=== PATIENT | male | born 1955 | race Caucasian/White ===

== ENCOUNTER 2019-02-07 11:16 | Emergency (ER) | payer BC, MEDICARE ==
[2019-02-07] MEDS ORDERED: PANTOPRAZOLE SODIUM 40 MG VIAL IV ONE (12:34)
[2019-02-07] MEDS ORDERED: ONDANSETRON HCL INJ/PF 4 MG/2 ML SDV IV ONE (12:34)
[2019-02-07] MEDS ORDERED: MORPHINE SULFATE 10 MG/ML INJ IV ONE ×2 (12:34→16:59)
--- NOTE | 2019-02-07 12:38 | ER Document Report ---
ED Medical Screen (RME) - General Chief Complaint: Abdominal Pain Stated Complaint: ABDOMINAL PAIN Time Seen by Provider: 02/07/19 12:30 Primary Care Provider: MADELIN JANE MD [Primary Care Provider] - Follow up as needed Mode of Arrival: Ambulatory Information source: Patient TRAVEL OUTSIDE OF THE [place] IN LAST 30 DAYS: No - HPI Patient complains to provider of: ABDO PAIN, BLOOD IN STOOL Notes: 02/07/19 12:36 Patient here with complaints of abdominal pain and GI bleed. The patient has a history of chronic pain and is on oxycodone. Is been out of his medication for over a week. Has been taking ibuprofen and drinking alcohol due to pain. Now complaining of some upper abdominal pain and having some black tarry stool. He was sent in by his primary care doctor due to blood in his stool. He was supposed to go over for some outpatient imaging, his pain got much worse so he came to the emergency department. Exam Nontoxic, no distress. Patient does appear uncomfortable hunched over holding his abdomen. No focal abdominal tenderness on exam. Lungs clear and equal throughout. Heart sounds normal. Plan CBC, CMP, lipase, coags, type and screen, saline lock, morphine, Zofran, Protonix, CT abdomen pelvis with IV contrast An initial examination was made on the patient as part of the triage process, and it was determined a more comprehensive evaluation was necessary. Initial labs were ordered and patient was transferred to another provider in the ED who assumed care and finished evaluation and plan. - Related Data Allergies/Adverse Reactions: No Known Allergies Allergy (Verified 02/07/19 11:18) Past Medical History - Social History Chew tobacco use (# tins/day): No Frequency of alcohol use: Social Drug Abuse: None - Past Medical History Cardiac Medical History: Reports: Hx Hypertension Denies: Hx Heart Attack Pulmonary Medical History: Denies: Hx Asthma, Hx Bronchitis, Hx COPD, Hx Pneumonia Neurological Medical History: Denies: Hx Cerebrovascular Accident, Hx Seizures Renal/ Medical History: Denies: Hx Peritoneal Dialysis Musculoskeltal Medical History: Reports Hx Arthritis Past Surgical History: Reports: Hx Abdominal Surgery - hernia repair - Immunizations Hx Diphtheria, Pertussis, Tetanus Vaccination: Yes Physical Exam - Vital signs Vitals: Temp Pulse Resp BP Pulse Ox 98.3 F 98 18 142/93 H 92 02/07/19 11:22 02/07/19 11:22 02/07/19 11:22 02/07/19 11:22 02/07/19 11:22 Course - Vital Signs Vital signs: Temp Pulse Resp BP Pulse Ox 98.3 F 98 18 142/93 H 92 02/07/19 11:22 02/07/19 11:22 02/07/19 11:22 02/07/19 11:22 02/07/19 11:22 Doctor's Discharge - Discharge Referrals: MADELIN JANE MD [Primary Care Provider] - Follow up as needed
[2019-02-07 13:14] LABS: ABSOLUTE BASOPHILS # (AUTO) 0.1 10^3/uL (0.0-0.2); ABSOLUTE MONOCYTES (AUTO) 0.8 10^3/uL (0.1-1.4); ABSOLUTE NEUT (AUTO) 11.5 10^3/uL (1.7-8.2); BASOPHILS % (AUTO) 0.5 % (0-2); EOSINOPHILS % (AUTO) 0.1 % (0-6); LYMPHOCYTES % (AUTO) 7.8 % (13-45); MEAN CORPUSCULAR HEMOGLOBIN 31.7 pg (27.0-33.4); MEAN CORPUSCULAR HGB CONC 33.3 g/dL (32.0-36.0); MEAN CORPUSCULAR VOLUME 95 fl (80-97); MONOCYTES % (AUTO) 5.7 % (3-13); PLATELET COUNT 315 10^3/uL (150-450); RED BLOOD COUNT 4.73 10^6/uL (4.35-5.55); RED CELL DISTRIBUTION WIDTH 14.4 % (11.5-14.0); SEGMENTED NEUTROPHILS % (AUTO) 85.9 % (42-78); TOTAL CELLS COUNTED % (AUTO) 100 %; WHITE BLOOD COUNT 13.4 10^3/uL (4.0-10.5)
[2019-02-07 13:19] LABS: INTERNATIONAL RATION (INR) 0.92; PROTHROMBIN TIME 12.8 SEC (11.4-15.4)
[2019-02-07 13:20] LABS: PARTIAL THROMBOPLASTIN TIME 29.2 SEC (23.5-35.8)
[2019-02-07 13:40] LABS: ALANINE AMINOTRANSFERASE 25 U/L (21-72); ALBUMIN 3.4 g/dL (3.5-5.0); ALKALINE PHOSPHATASE 70 U/L (38-126); ANION GAP 13 (5-19); ASPARTATE AMINO TRANSFERASE 33 U/L (17-59); BILIRUBIN,DIRECT 0.6 mg/dL (0.0-0.4); BILIRUBIN,TOTAL 0.6 mg/dL (0.2-1.3); BLOOD UREA NITROGEN 23 mg/dL (7-20); CALCIUM 9.8 mg/dL (8.4-10.2); CARBON DIOXIDE 33 mmol/L (22-30); CHLORIDE 83 mmol/L (98-107); GLUCOSE 101 mg/dL (75-110); LIPASE 60.3 U/L (23-300); SODIUM 129.2 mmol/L (137-145); TOTAL PROTEIN 6.4 g/dL (6.3-8.2)
[2019-02-07 13:42] LABS: POTASSIUM 2.5 mmol/L (3.6-5.0)
[2019-02-07] MEDS ORDERED: POTASSI CL 20 MEQ/50 ML RIDER 20 MEQ/50 ML RTUPB IV ONE ×3 (13:53→16:52)
[2019-02-07] MEDS ORDERED: POTASSIUM CHLORIDE 10 MEQ CAPSULE.ER PO ONE (13:53)
--- NOTE | 2019-02-07 14:35 | RADIOLOGY REPORT (SQ) ---
EXAM DESCRIPTION: CT ABD/PELVIS WITH IV ONLY COMPLETED DATE/TIME: 02/07/2019 2:16 pm REASON FOR STUDY: ABDO PAIN, GI BLEED COMPARISON: None. TECHNIQUE: CT scan of the abdomen and pelvis performed using helical scanning technique with dynamic intravenous contrast injection. No oral contrast. Images reviewed with lung, soft tissue, and bone windows. Reconstructed coronal and sagittal MPR images reviewed. Delayed images for evaluation of the urinary system also acquired. All images stored on PACS. All CT scanners at this facility use dose modulation, iterative reconstruction, and/or weight based d osing when appropriate to reduce radiation dose to as low as reasonably achievable (ALARA). [facility]: Dose Right [facility]: CareDose [facility]: Dose Right [facility]: Teradose 4D [facility]: [employer] CONTRAST TYPE AND DOSE: contrast/concentration: Isovue 350.00 mg/ml; Total Contrast Delivered: 99.0 ml; Total Saline Delivered: 64.3 ml RENAL FUNCTION: GFR > 60. RADIATION DOSE: CT Rad equipment meets quality standard of care and radiation dose reduction techniq ues were employed. CTDIvol: 12.9 - 16.7 mGy. DLP: 1650 mGy-cm.. LIMITATIONS: None. FINDINGS: LOWER CHEST: No significant findings. No nodules or infiltrates. LIVER: Normal size. No masses. No dilated ducts. SPLEEN: Normal size. No focal lesions. PANCREAS: No masses. No significant calcifications. No adjacent inflammation or peripancreatic fluid collections. Pancreatic duct not dilated. GALLBLADDER: Gallstones. No inflammatory changes to suggest cholecystitis. ADRENAL GLANDS: No significant masses or asymmetry. RIGHT KIDNEY AND URETER: No solid masses. Multiple nonobstructive calculi. No hydronephrosis or h ydroureter. LEFT KIDNEY AND URETER: No solid masses. There is a large obstructive calculus of the proximal left ureter measuring 1.8 cm with moderate left hydronephrosis and pelviectasis. There are multiple francie tional nonobstructive calculi of the left kidney. AORTA AND VESSELS: No aneurysm. No dissection. Renal arteries, SMA, celiac without stenosis. Severe mixed calcific atherosclerosis. RETROPERITONEUM: No retroperitoneal adenopathy, hemorrhage or masses. BOWEL AND PERITONEAL CAVITY: There is severe thickening of the pylorus and duodenum (series 601, imag e 30). Severe diverticulosis without evidence of acute diverticulitis. APPENDIX: Normal. PELVIS: No mass. No free fluid. Normal bladder. ABDOMINAL WALL: No masses. No hernias. BONES: No significant or acute findings. OTHER: No other significant finding. IMPRESSION: 1. There is severe thickening of the pylorus and duodenum, consistent with nonspecific i nfection or inflammation. Ulcerative disease of the pylorus or duodenum is a potential source of GI bleeding however there are no CT findings on this examination to localize source GI bleeding. 2. Severe sigmoid diverticulosis without evidence of acute diverticulitis. 3. There is a large obstructive calculus of the proximal left ureter measuring 1.8 cm with moderate left hydronephrosis and pelviectasis. Multiple additional bilateral nonobstructive renal calculi. TECHNICAL DOCUMENTATION: JOB ID: [id number] Quality ID # [id number]: Final reports with documentation of one or more dose reduction techniques (e.g., Au tomated exposure control, adjustment of the mA and/or kV according to patient size, use of iterative reconstruction technique) 2010 [employer]- All Rights Reserved Reading location - IP/workstation name: [email or web address]
--- NOTE | 2019-02-07 14:38 | ER Document Report ---
ED GI/ - General Mode of Arrival: Ambulatory Information source: Patient, Friend TRAVEL OUTSIDE OF THE [place] IN LAST 30 DAYS: No - HPI Patient complains to provider of: Abdominal pain Onset: Other - 2 to 3 weeks ago Timing/Duration: Persistent, Worse Quality of pain: Cramping, Sharp, Throbbing Severity at maximum: Severe Severity in ED: Severe Pain Level: 5 Location: Chest pain, Epigastric, Low back Sexual history: Inactive Associated symptoms: Blood in emesis, Blood in stool, Chest pain, Coffee ground emesis, Nausea, Vomiting Exacerbated by: Food Relieved by: Denies Similar symptoms previously: No Recently seen / treated by doctor: Yes <FRANCES SINGER - Last Filed: 02/08/19 01:28> <OSBALDO BRAVO - Last Filed: 02/08/19 02:20> <KERWIN SUAREZ - Last Filed: 02/08/19 10:45> - General Chief Complaint: Abdominal Pain Stated Complaint: ABDOMINAL PAIN Time Seen by Provider: 02/07/19 12:30 Primary Care Provider: MADELIN JANE MD [COMMUNITY BASED STAFF] - Follow up as needed Notes: Patient is a 63-year-old male comes emergency room sent by Dr. Martinez because of a new onset GI bleed. Patient is in pain managed for chronic back pain and is usually prescribed on a monthly basis 120 care support all 350 mg and oxycodone 20 mg tablets #90 a 30-day supply. He ran out according to him approximately last or Monday and since that time because of his severe pain and discomfort he has been taking minimum of 200 mg Advil 4 tablets 5-6 times a day and he states closer to 6 times a day so for grand total of 4800 mg in the day around the clock. He started with severe abdominal pain 2 days ago he is vomited up according to him coffee-ground type emesis and he has had footage type color stools. He is also been burping excessively. Patient states that his abdominal pain actually started prior to him running out of his pain medications and has increased at a substantial rate with the addition of the Ad christiano and he is also added alcohol into the mix. He states he drank heavily yesterday because of his his severe pain and added the ibuprofen onto that. Patient has a history of an ID he is an oral dependent diabetic he states he takes 5 medications for blood pressure but is unaware as to what they are but states he does not know if he takes a blood thinner. Patient also admits to smoking a minimum 2 packs of cigarettes a day. He does not take oxygen at home. States he last vomited this morning about 9 AM. (FRANCES SINGER) - Related Data Allergies/Adverse Reactions: No Known Allergies Allergy (Verified 02/07/19 11:18) Past Medical History - General Information source: Patient, Friend - Social History Smoking Status: Current Every Day Smoker Cigarette use (# per day): Yes - 2 packs a day Chew tobacco use (# tins/day): No Smoking Education Provided: Yes Frequency of alcohol use: Social Drug Abuse: None Lives with: Alone Family History: Reviewed & Not Pertinent Patient has suicidal ideation: No Patient has homicidal ideation: No - Past Medical History Cardiac Medical History: Reports: Hx Hypertension Denies: Hx Heart Attack Pulmonary Medical History: Denies: Hx Asthma, Hx Bronchitis, Hx COPD, Hx Pneumonia Neurological Medical History: Denies: Hx Cerebrovascular Accident, Hx Seizures Renal/ Medical History: Denies: Hx Peritoneal Dialysis Musculoskeletal Medical History: Reports Hx Arthritis Past Surgical History: Reports: Hx Abdominal Surgery - hernia repair - Immunizations Hx Diphtheria, Pertussis, Tetanus Vaccination: Yes <FRANCES SINGER - Last Filed: 02/08/19 01:28> Review of Systems - Review of Systems Constitutional: No symptoms reported EENT: No symptoms reported Cardiovascular: See HPI, Chest pain Respiratory: See HPI, Short of breath Gastrointestinal: See HPI, Abdomen distended, Abdominal pain, Nausea, Vomiting, Black stools, Rectal bleeding, Last bowel movement, Other - Coffee-ground emesis Genitourinary: No symptoms reported Male Genitourinary: No symptoms reported Musculoskeletal: No symptoms reported Skin: No symptoms reported Hematologic/Lymphatic: No symptoms reported Neurological/Psychological: No symptoms reported -: Yes All other systems reviewed and negative <FRANCES SINGER - Last Filed: 02/08/19 01:28> Physical Exam - Vital signs Interpretation: Hypertensive <FRANCES SINGER - Last Filed: 02/08/19 01:28> - Vital signs Vitals: Temp Pulse Resp BP Pulse Ox 98.3 F 98 18 142/93 H 92 02/07/19 11:22 02/07/19 11:22 02/07/19 11:22 02/07/19 11:22 02/07/19 11:22 - Notes Notes: PHYSICAL EXAMINATION: GENERAL: Patient is a well-nourished well-developed 63-year-old male who is in no apparent distress on physical exam today however patient appears somewhat uncomfortable. He has a hardened personality avoids questions and gives abstract answers. Talks around the answers. HEAD: Atraumatic, normocephalic. EYES: Pupils equal round and reactive to light, extraocular movements intact, sclera anicteric, conjunctiva are normal. ENT: Nares patent, oropharynx clear without exudates. Moist mucous membranes. NECK: Normal range of motion, supple without lymphadenopathy LUNGS: Auscultation patient's lungs show he has bilateral breath sounds breath sounds are decreased throughout he has a faint expiratory wheeze with no rhonchi or rales heard at this time. HEART: Regular rate and rhythm without murmurs ABDOMEN: Examination the abdomen shows she has a distended abdomen that sounds blunted to percussion moderate tympany in the upper quads supine position. Bowel sounds are present but fairly quiet. Diffuse tenderness noted. Moderate amount of midepigastric pain to palpation. Musculoskeletal: Normal range of motion, no pitting or edema. No cyanosis. NEUROLOGICAL: Normal speech, normal gait. Normal sensory, motor exams PSYCH: Flat a fact SKIN: Warm, Dry, normal turgor, no rashes or lesions noted. (FRANCES SINGER) Course - Laboratory Result Diagrams: 02/07/19 20:35 02/07/19 20:35 - Transfer of Care Care transferred to following provider: Anupam [facility] <FRANCES SINGER - Last Filed: 02/08/19 01:28> - Laboratory Result Diagrams: 02/08/19 01:20 02/08/19 01:20 <OSBALDO BRAVO - Last Filed: 02/08/19 02:20> - Laboratory Result Diagrams: 02/08/19 01:20 02/08/19 01:20 <KERWIN SUAREZ - Last Filed: 02/08/19 10:45> - Re-evaluation Re-evalutation: 02/07/19 14:43 As stated patient is a very difficult person to deal with. He avoids questions and answers are abstract and do not completely answer the question. He admits to only occasional alcohol and states that this binge that he is been on is only been secondary to run out of his pain medications and having to deal with the pain he is increased his alcohol intake substantially the past 3 days to include that with handfuls of ibuprofen. He has been taking 800 mg of ibuprofen 5-6 times a day. He does state that his abdominal pain started prior to this. Patient's friend states she is very difficult he does not drink on a more regular basis than he admits and states is only for medicinal purposes. Patient's guaiac was highly positive. Sitting there on physical examination patient is continuously burping but he has not vomited. He has been shown to have a 2.5 potassium orders for a 40 mg p.o. load I feel that we will go only IV currently with the first 20 mEq rider attached we will also then add a second 40 mEq rider IV as well. I started a Protonix drip. We will further evaluate betsy josé after CT and rest of labs are back. 02/08/19 01:20 Updating patient status. I attempted to contact [facility] and when talked to their intake person there only to be told that they were not accepting any new patients. They explained that they were only taken emergency patients at this time. I contacted [facility] was told basically the same thing. I readdress the issue with the patient and he informed me he would like to go to [facility]. I contacted [facility] and was pleasantly surprised to have the intake person there for me through the doctor Caleb was a hospitalist there at the time. I explained the entire story to her and she was very pleasant and accept the patient to [facility]. The caveat to that was their full right now but when the first bed became available patient would be accepted. She informed me that it would probably be 24 hours before this could happen. Upon hanging up the transfer person there informed me that if at any time we had a change in patient's medical status and he has taken a turn probable for the worst we are to contact them if he would need an ICU bed and they would take him the first open bed in ICU. From about 7 PM on patient had an altered mental status and I had Dr. Larry Marie come in during the event and we concluded that it was probably a withdrawal from alcohol. We gave the patient 4 of Ativan along with magnesium, thiamine and fluids and patient got somewhat better but still maintained a tachycardic rate. Around 11:00 patient had another episode of altered mental status and I readdress the issue with Dr. Banks and informed Barbara Bravo who is the PA on maintenance technician 3rd shift. Because of the hand and the patient off to her. It was suggested by Dr. Banks that I put in for a internal medicine consult with Dr. Anne which I did. willing to inform me that our [facility] does not have an acute alcohol withdrawal policy. However he informed me that he would come down and take a look at the patient and offer any internal medical assistance that he might have. So at this point I am going to be handed patient off to Barbara for further intervention. (FRANCES SINGER) 02/08/19 02:[address] Baig has seen the patient in the emergency department and placed orders. Nursing staff has been instructed to go through Dr. Baig for any orders needed. Patient continues to be in the emergency department awaiting transfer. (OSBALDO BRAVO) 02/08/19 10:43 Saw patient with transport nurse at bedside prior to transfer. Patient was initially obtunded and required vigorous sternal rub to arouse. Patient had been getting standing Valium to prevent DTs. Nurse was initially concerned and called by did not to consider upgrading patient to MICU. I briefly spoke with the MICU attending and then went and assessed the patient at the bedside. When I spoke with the patient he was awake and alert to self and place but not date. Patient was able to hold a conversation. Blood pressure was 148/100. SPO2 97% on 2 L nasal cannula. Not tachycardic. Vital signs were within normal limits. Transport nurse made decision to transfer patient by air. Patient transferred with [facility] without problems. (KERWIN SUAREZ) - Vital Signs Vital signs: Temp Pulse Resp BP Pulse Ox 97.2 F 98 26 H 123/80 93 02/08/19 09:43 02/07/19 11:22 02/08/19 09:21 02/08/19 09:21 02/08/19 09:21 - Laboratory Laboratory results interpreted by me: 05/11/2702/07/19 02/07/19 12:45 12:45 16:45 WBC 13.4 H RBC Hgb RDW 14.4 H Seg Neutrophils % 85.9 H Lymphocytes % 7.8 L Absolute Neutrophils 11.5 H Carbonic Acid ABG pH ABG pCO2 ABG pO2 ABG HCO3 ABG Total CO2 ABG O2 Saturation Sodium 129.2 L Potassium 2.5 L* Chloride 83 L Carbon Dioxide 33 H BUN 23 H Direct Bilirubin 0.6 H ALT Total Protein Albumin 3.4 L Urine Ketones 20 H Urine Blood LARGE H Ur Leukocyte Esterase TRACE H 02/07/19 02/07/19 02/08/19 20:35 20:35 01:20 WBC 10.8 H RBC 4.24 L 4.17 L Hgb 13.3 L RDW 14.7 H 14.6 H Seg Neutrophils % Lymphocytes % Absolute Neutrophils Carbonic Acid ABG pH ABG pCO2 ABG pO2 ABG HCO3 ABG Total CO2 ABG O2 Saturation Sodium 131.1 L Potassium 2.9 L* Chloride 88 L Carbon Dioxide 34 H BUN 23 H Direct Bilirubin ALT Total Protein Albumin Urine Ketones Urine Blood Ur Leukocyte Esterase 02/08/19 02/08/19 02/08/19 01:20 02:00 09:30 WBC RBC Hgb RDW Seg Neutrophils % Lymphocytes % Absolute Neutrophils Carbonic Acid 2.38 H 1.64 H ABG pH 7.27 L ABG pCO2 79.2 H* 54.4 H ABG pO2 132.9 H 104.6 H ABG HCO3 35.3 H 34.7 H ABG Total CO2 37.7 H 36.4 H ABG O2 Saturation 98.1 H Sodium 133.5 L Potassium 2.9 L* Chloride 92 L Carbon Dioxide 32 H BUN Direct Bilirubin 0.5 H ALT 17 L Total Protein 5.4 L Albumin 3.0 L Urine Ketones Urine Blood Ur Leukocyte Esterase Discharge <FRANCES SINGER - Last Filed: 02/08/19 01:28> <OSBALDO BRAVO - Last Filed: 02/08/19 02:20> <KERWIN SUAREZ - Last Filed: 02/08/19 10:45> - Discharge Clinical Impression: Upper GI hemorrhage, Ureterolithiasis Altered mental status Qualifiers: Altered mental status type: unspecified Qualified Code(s): R41.82 - Altered mental status, unspecified Alcohol withdrawal Qualifiers: Complication of substance-induced condition: with delirium Qualified Code(s): F10.231 - Alcohol dependence with withdrawal delirium Disposition: [facility] Referrals: MADELIN JANE MD [COMMUNITY BASED STAFF] - Follow up as needed
[2019-02-07] MEDS: PANTOPRAZOLE SODIUM 40 MG VIAL IV PRN (16:08)
[2019-02-07 17:12] LABS: APPEARANCE,URINE SLIGHTLY-CLOUDY; BILIRUBIN,URINE NEGATIVE (NEGATIVE); COLOR,URINE YELLOW; GLUCOSE, URINE NEGATIVE (NEGATIVE); KETONES,URINE 20 mg/dL (NEGATIVE); LEUKOCYTE ESTERASE,URINE TRACE (NEGATIVE); NITRITE,URINE NEGATIVE (NEGATIVE); PROTEIN,URINE NEGATIVE (NEGATIVE); UROBILINOGEN,URINE NEGATIVE mg/dL (<2.0)
[2019-02-07] MEDS ORDERED: LORAZEPAM INJ 2 MG/1 ML VIAL IV ONE ×2 (17:47→20:15)
[2019-02-07] MEDS ORDERED: THIAMINE HCL 100 MG, FOLIC ACID 1 MG in NORMAL SALINE 250 ML IV ONE (20:23)
[2019-02-07] MEDS ORDERED: NORMAL SALINE 1000 ML 1,000 ML IV ONE (20:27)
[2019-02-07 20:47] LABS: ABSOLUTE BASOPHILS # (AUTO) 0.1 10^3/uL (0.0-0.2); ABSOLUTE LYMPHOCYTES (AUTO) 1.5 10^3/uL (0.5-4.7); ABSOLUTE MONOCYTES (AUTO) 0.8 10^3/uL (0.1-1.4); ABSOLUTE NEUT (AUTO) 7.7 10^3/uL (1.7-8.2); BASOPHILS % (AUTO) 0.6 % (0-2); EOSINOPHILS % (AUTO) 0.3 % (0-6); HEMATOCRIT 40.6 % (37.9-51.0); HEMOGLOBIN 13.6 g/dL (13.5-17.0); LYMPHOCYTES % (AUTO) 14.5 % (13-45); MEAN CORPUSCULAR HEMOGLOBIN 32.1 pg (27.0-33.4); MEAN CORPUSCULAR HGB CONC 33.5 g/dL (32.0-36.0); MEAN CORPUSCULAR VOLUME 96 fl (80-97); MONOCYTES % (AUTO) 8.1 % (3-13); PLATELET COUNT 268 10^3/uL (150-450); RED BLOOD COUNT 4.24 10^6/uL (4.35-5.55); RED CELL DISTRIBUTION WIDTH 14.7 % (11.5-14.0); SEGMENTED NEUTROPHILS % (AUTO) 76.5 % (42-78); TOTAL CELLS COUNTED % (AUTO) 100 %; WHITE BLOOD COUNT 10.1 10^3/uL (4.0-10.5)
[2019-02-07] MEDS: MAGNESIUM SULFATE/D5W 1 GM/100 ML RTUPB IV SCH ×2 (20:57→22:21)
[2019-02-07 21:06] LABS: ANION GAP 9 (5-19); BLOOD UREA NITROGEN 23 mg/dL (7-20); CALCIUM 9.1 mg/dL (8.4-10.2); CARBON DIOXIDE 34 mmol/L (22-30); CHLORIDE 88 mmol/L (98-107); GLUCOSE 86 mg/dL (75-110); SODIUM 131.1 mmol/L (137-145)
[2019-02-07 21:11] LABS: POTASSIUM 2.9 mmol/L (3.6-5.0)
--- NOTE | 2019-02-07 23:15 | EKG REPORT ---
SEVERITY:- ABNORMAL ECG - SINUS TACHYCARDIA RIGHT AXIS DEVIATION INFERIOR INFARCT, AGE INDETERMINATE : Confirmed by: Ayden Bingham 07-Feb-2019 23:15:22
[2019-02-08] MEDS ORDERED: LORAZEPAM INJ 2 MG/1 ML VIAL IV ONE (00:03)
[2019-02-08] MEDS ORDERED: DIAZEPAM INJ 10 MG/2 ML DISP.SYRIN IV PRN (01:12)
[2019-02-08] MEDS ORDERED: HALOPERIDOL LACTATE INJ 5 MG/1 ML VIAL IV PRN (01:13)
[2019-02-08] MEDS: PANTOPRAZOLE SODIUM 40 MG VIAL IV PRN (01:30)
[2019-02-08 01:35] LABS: HEMATOCRIT 40.2 % (37.9-51.0); HEMOGLOBIN 13.3 g/dL (13.5-17.0); MEAN CORPUSCULAR HGB CONC 33.1 g/dL (32.0-36.0); MEAN CORPUSCULAR VOLUME 97 fl (80-97); PLATELET COUNT 274 10^3/uL (150-450); RED BLOOD COUNT 4.17 10^6/uL (4.35-5.55); RED CELL DISTRIBUTION WIDTH 14.6 % (11.5-14.0); WHITE BLOOD COUNT 10.8 10^3/uL (4.0-10.5)
--- NOTE | 2019-02-08 01:53 | PDOC CONSULTATION ---
Consultation Consult Date: 02/08/19 Attending physician:: FERNIE BANKS Consult reason:: Delirium History of Present Illness Admission Date/PCP: 02/08/2019 JAYLEN POMPA MD Patient complains of: Upper GI bleeding History of Present Illness: MAIA PATEL is a 63 year old male who is being seen in consultation at the request of Dr. Banks due to intermittent delirium. Patient initially presented to the emergency room due to upper GI bleeding caused by excessive use of nonsteroidal anti-inflammatories in the form of ibuprofen 4800 mg/day and concomitant use of large amounts of alcohol for pain control due to inappropriate utilization of his regular pain management medications. Staff reports that the patient has had several episodes where his mental status has appeared to be altered and that he does not appear to answer questions or provides appropriate answers and seems to be confused or otherwise inappropriate in both actions and verbalizations. At the time of my evaluation the patient is obtunded but can be aroused and is delirious upon arousal. He therefore can provide no helpful input into his condition. Past Medical History Past Medical History: Past medical history, past surgical history, social history, family medical history and medications and allergy history are significantly impaired by the patient's mental status with delirium. Information present is obtained by using all available records and reliable sources. Cardiac Medical History: Reports: Hyperlipidema, Hypertension Denies: Myocardial Infarction Pulmonary Medical History: Denies: Asthma, Bronchitis, Chronic Obstructive Pulmonary Disease (COPD), Pneumonia EENT Medical History: Denies: Eyes - Prescription glasses, Ears - Hearing aids Neurological Medical History: Denies: Hemorrhagic CVA, Ischemic CVA, Seizures Endocrine Medical History: Reports: Diabetes Mellitus Type 2 Denies: Diabetes Mellitus Type 1, Hyperthyroidism, Hypothyroidism Renal/ Medical History: Reports: Nephrolithiasis, Other - Benign prostatic hypertrophy Denies: Chronic Kidney Disease Malignancy Medical History: Reports: None GI Medical History: Denies: Cirrhosis, Hepatitis, Peptic Ulcer Disease Musculoskeltal Medical History: Reports: Arthritis, Other - Chronic pain syndrome Skin Medical History: Denies: Eczema, Psoriasis Psychiatric Medical History: Reports: Substance Abuse, Tobacco Dependency Denies: Alcohol Dependency Traumatic Medical History: Reports: None Hematology: Denies: Anemia, Bleeding Tendencies Infectious Medical History: Reports: None Past Surgical History Past Surgical History: Past medical history, past surgical history, social history, family medical hist ory and medications and allergy history are significantly impaired by the patient's mental status with delirium. Information present is obtained by using all available records and reliable sources. Past Surgical History: Reports: Other - Patient is unable to provide meaningful input at this time. Social History Information Source: Patient Lives with: Alone Smoking Status: Current Every Day Smoker Frequency of Alcohol Use: Heavy - Over the last few days he has been using large amounts of alcohol for pain control Hx Recreational Drug Use: No Drugs: None Hx Prescription Drug Abuse: Yes - Currently in pain management and used his current medication to excess Past Social History Note: Past medical history, past surgical history, social history, family medical history and medications and allergy history are significantly impaired by the patient's mental status with delirium. Information present is obtained by using all available records and reliable sources. - Advance Directive Resuscitation Status: Full Code Surrogate healthcare decision maker:: Anton Patel Family History Family History: Other - The patient is unable to provide meaningful family history at this time. Family History: Past medical history, past surgical history, social history, family medical history and medications and allergy history are significantly impaired by the patient's mental status with delirium. Information present is obtained by using all available records and reliable sources. Parental Family History Reviewed: No Children Family History Reviewed: No Sibling(s) Family History Reviewed.: No Medication/Allergy Home Medications: Aspirin 81 mg PO DAILY PRN 03/03/16 Carisoprodol 1 tab PO DAILY 03/03/16 Diltiazem HCl [Diltiazem ER] 180 mg PO BID 03/03/16 Diltiazem HCl [Diltiazem ER] 240 mg PO DAILY 03/03/16 Enalapril Maleate 20 mg PO BID 03/03/16 Hydrocodone Bit/Acetaminophen [Hydrocodon-Acetaminophn 10-325] 1 each PO TID 03/03/16 Ibuprofen [Advil] 200 mg PO ASDIR PRN 03/03/16 Metformin HCl 2 tab PO DAILY 03/03/16 Oxybutynin Chloride [Ditropan Xl] 15 mg PO DAILY 03/03/16 Pravastatin Sodium 20 mg PO DAILY 03/03/16 Tamsulosin HCl 0.4 mg PO BID 03/03/16 Allergies/Adverse Reactions: No Known Allergies Allergy (Verified 02/07/19 11:18) Review of Systems ROS unobtainable: Due to mental status - Severe delirium Physical Exam Vital Signs: Temp Pulse Resp BP Pulse Ox 98.8 F 98 22 H 138/97 H 98 02/07/19 23:42 02/07/19 11:22 02/07/19 23:42 02/07/19 23:42 02/07/19 23:00 Intake & Output 02/06/19 02/07/19 02/08/19 23:59 23:59 23:59 Intake Total 1150 Output Total 700 Balance 450 Weight 87.3 kg General appearance: PRESENT: no acute distress, other - Sleeping and somewhat obtunded, though arousable, unable to remain awake for any length of time. Head exam: PRESENT: atraumatic, normocephalic Eye exam: PRESENT: EOMI. ABSENT: conjunctival injection, nystagmus, scleral icterus Ear exam: PRESENT: normal external ear exam. ABSENT: bleeding, drainage Mouth exam: PRESENT: dry mucosa, neck supple Neck exam: ABSENT: JVD, thyromegaly, tracheal deviation Respiratory exam: PRESENT: decreased breath sounds - Slightly decreased breath s ounds throughout all montez consistent with mild to moderate COPD, prolonged expiratory phas - Minimally prolonged expiratory phase noted throughout all montez, symmetrical, unlabored, wheezes - Minimal expiratory wheezes noted throughout all montez Cardiovascular exam: PRESENT: RRR. ABSENT: clicks, gallop, rubs Pulses: PRESENT: normal radial pulses, normal dorsalis pedis pul Vascular exam: PRESENT: normal capillary refill. ABSENT: pallor GI/Abdominal exam: PRESENT: normal bowel sounds, soft, tenderness - Patient appears to be uncomfortable with palpation in the left flank and percussion over the left CVA region Rectal exam: PRESENT: deferred Extremities exam: ABSENT: joint swelling, pedal edema Musculoskeletal exam: ABSENT: deformity, dislocation Neurological exam: PRESENT: altered - Chemically obtunded, CN II-XII grossly intact. ABSENT: motor sensory deficit Psychiatric exam: PRESENT: flat affect, other - Chemically obtunded, delirium noted when aroused Skin exam: PRESENT: dry, intact, warm. ABSENT: jaundice, rash, urticaria Results Laboratory Results: 02/07/19 20:35 02/07/19 20:35 02/07/19 02/07/19 02/07/19 12:45 12:45 12:45 WBC 13.4 H RBC 4.73 Hgb 15.0 Hct 45.0 MCV 95 MCH 31.7 MCHC 33.3 RDW 14.4 H Plt Count 315 Seg Neutrophils % 85.9 H Lymphocytes % 7.8 L Monocytes % 5.7 Eosinophils % 0.1 Basophils % 0.5 Absolute Neutrophils 11.5 H Absolute Lymphocytes 1.0 Absolute Monocytes 0.8 Absolute Eosinophils 0.0 Absolute Basophils 0.1 Sodium 129.2 L Potassium 2.5 L* Chloride 83 L Carbon Dioxide 33 H Anion Gap 13 BUN 23 H Creatinine 0.86 Est GFR ( Amer) > 60 Est GFR (Non-Af Amer) > 60 Glucose 101 Calcium 9.8 Magnesium Total Bilirubin 0.6 AST 33 ALT 25 Alkaline Phosphatase 70 Total Protein 6.4 Albumin 3.4 L Lipase 60.3 Urine Color Urine Appearance Urine pH Ur Specific Adrian Urine Protein Urine Glucose (UA) Urine Ketones Urine Blood Urine Nitrite Ur Leukocyte Esterase Urine WBC (Auto) Urine RBC (Auto) Blood Type Cancelled Antibody Screen Cancelled 02/07/19 02/07/19 02/07/19 14:45 14:45 16:45 WBC RBC Hgb Hct MCV MCH MCHC RDW Plt Count Seg Neutrophils % Lymphocytes % Monocytes % Eosinophils % Basophils % Absolute Neutrophils Absolute Lymphocytes Absolute Monocytes Absolute Eosinophils Absolute Basophils Sodium Potassium Chloride Carbon Dioxide Anion Gap BUN Creatinine Est GFR ( Amer) Est GFR (Non-Af Amer) Glucose Calcium Magnesium 1.6 Total Bilirubin AST ALT Alkaline Phosphatase Total Protein Albumin Lipase Urine Color YELLOW Urine Appearance SLIGHTLY-CLOUDY Urine pH 6.0 Ur Specific Adrian 1.030 Urine Protein NEGATIVE Urine Glucose (UA) NEGATIVE Urine Ketones 20 H Urine Blood LARGE H Urine Nitrite NEGATIVE Ur Leukocyte Esterase TRACE H Urine WBC (Auto) 23 Urine RBC (Auto) >182 Blood Type O NEGATIVE Antibody Screen NEGATIVE 02/07/19 02/07/19 20:35 20:35 WBC 10.1 RBC 4.24 L Hgb 13.6 Hct 40.6 MCV 96 MCH 32.1 MCHC 33.5 RDW 14.7 H Plt Count 268 Seg Neutrophils % 76.5 Lymphocytes % 14.5 Monocytes % 8.1 Eosinophils % 0.3 Basophils % 0.6 Absolute Neutrophils 7.7 Absolute Lymphocytes 1.5 Absolute Monocytes 0.8 Absolute Eosinophils 0.0 Absolute Basophils 0.1 Sodium 131.1 L Potassium 2.9 L* Chloride 88 L Carbon Dioxide 34 H Anion Gap 9 BUN 23 H Creatinine 0.86 Est GFR ( Amer) > 60 Est GFR (Non-Af Amer) > 60 Glucose 86 Calcium 9.1 Magnesium Total Bilirubin AST ALT Alkaline Phosphatase Total Protein Albumin Lipase Urine Color Urine Appearance Urine pH Ur Specific Adrian Urine Protein Urine Glucose (UA) Urine Ketones Urine Blood Urine Nitrite Ur Leukocyte Esterase Urine WBC (Auto) Urine RBC (Auto) Blood Type Antibody Screen Impressions: Abdomen/Pelvis CT 02/07/19 12:34 IMPRESSION: 1. There is severe thickening of the pylorus and duodenum, consistent with nonspecific infection or inflammation. Ulcerative disease of the pylorus or duodenum is a potential source of GI bleeding however there are no CT findings on this examination to localize source GI bleeding. 2. Severe sigmoid diverticulosis without evidence of acute diverticulitis. 3. There is a large obstructive calculus of the proximal left ureter measuring 1.8 cm with moderate left hydronephrosis and pelviectasis. Multiple additional bilateral nonobstructive renal calculi. Assessment and Plan - Diagnosis (1) Acute delirium Is this a current diagnosis for this admission?: Yes Plan: Though this patient is most likely experiencing delirium secondary to combined narcotic/opioid withdrawal and acute alcohol withdrawal, additional relevant possible causes of delirium should be explored including hypoxia, anemia and metabolic conditions. Laboratory evaluation will be ordered to this end including a repeat CBC, urine drug screen, arterial blood gases and a repeat comprehensive metabolic profile. (2) Alcohol withdrawal Qualifiers: Complication of substance-induced condition: with delirium Qualified Code(s): F10.231 - Alcohol dependence with withdrawal delirium Is this a current diagnosis for this admission?: Yes Plan: Management of the patient's delirium due to acute alcohol/opiate withdrawal will be provided using diazepam as the primary agent with an initial dose of 10 mg IV x1 followed by oral Valium 5 mg p.o. every 2 hours. Additional Valium for severe withdrawal symptoms including severe tremors, profound agitation/delirium, severe hallucinations and seizure activity will include Valium 10 mg IV every hour as needed. Nursing staff will observe the patient closely for excessive somnolence and will hold/delay doses as needed. In the event of severe agitation patient should receive Haldol 5 mg IV every hour as needed. If patient is unable/unwilling to take oral medications IV Valium can be substituted for oral Valium at the same dosage and interval. (3) Ureterolithiasis Is this a current diagnosis for this admission?: Yes Plan: Patient will be transferred for management of his ureterolithiasis. In the antrum pain control will be managed by the emergency room staff. (4) Upper GI hemorrhage Is this a current diagnosis for this admission?: Yes Plan: Patient will be transferred for further management. A repeat CBC will be obtained to assure that a significant drop in hemoglobin has not contributed to the patient's delirium. (5) HTN (hypertension) Qualifiers: Hypertension type: essential hypertension Qualified Code(s): I10 - Essential (primary) hypertension Is this a current diagnosis for this admission?: Yes Plan: Recommend continued use of the patient's usual antihypertensive medications as appropriate given his vital signs. Assuming he is able to take oral medications. (6) HLD (hyperlipidemia) Qualifiers: Hyperlipidemia type: unspecified Qualified Code(s): E78.5 - Hyperlipidemia, unspecified Is this a current diagnosis for this admission?: Yes Plan: Recommend continued use of the patient's Pravachol as available per hospital formulary. (7) Chronic pain syndrome Is this a current diagnosis for this admission?: Yes Plan: Acute pain management will be taking care of by the emergency room staff. (8) Benign prostatic hyperplasia with lower urinary tract symptoms Qualifiers: Lower urinary tract symptom detail: unspecified Qualified Code(s): N40.1 - Benign prostatic hyperplasia with lower urinary tract symptoms Is this a current diagnosis for this admission?: Yes Plan: Recommend continued use of the patient's tamsulosin as long as he is able to take oral medications. - Time Time Spent with patient: 15-24 minutes Smoking Cessation Education: 3 to 10 minutes Medications reviewed and adjusted accordingly: Yes Anticipated discharge: [facility]
[2019-02-08 02:12] LABS: ALANINE AMINOTRANSFERASE 17 U/L (21-72); ALKALINE PHOSPHATASE 53 U/L (38-126); ANION GAP 10 (5-19); ASPARTATE AMINO TRANSFERASE 23 U/L (17-59); BILIRUBIN,DIRECT 0.5 mg/dL (0.0-0.4); BILIRUBIN,TOTAL 0.6 mg/dL (0.2-1.3); BLOOD UREA NITROGEN 20 mg/dL (7-20); CALCIUM 8.6 mg/dL (8.4-10.2); CARBON DIOXIDE 32 mmol/L (22-30); CHLORIDE 92 mmol/L (98-107); GLUCOSE 90 mg/dL (75-110); SODIUM 133.5 mmol/L (137-145); TOTAL PROTEIN 5.4 g/dL (6.3-8.2)
[2019-02-08 02:16] LABS: POTASSIUM 2.9 mmol/L (3.6-5.0)
[2019-02-08 02:21] LABS: ARTERIAL BLOOD BASE EXCESS 5.4 mmol/L; ARTERIAL BLOOD H2CO3 2.38 mmol/L (1.05-1.35); ARTERIAL BLOOD HCO3 35.3 mmol/L (20-24); ARTERIAL BLOOD O2 SATURATION 98.1 % (94-98); ARTERIAL BLOOD PH 7.27 (7.35-7.45); ARTERIAL BLOOD PO2 132.9 mmHg (80-100); ARTERIAL BLOOD TOTAL CO2 37.7 mmol/L (23-27)
[2019-02-08 02:27] LABS: ARTERIAL BLOOD FIO2 5L
[2019-02-08] MEDS ORDERED: POTASSI CL 20 MEQ/D5-1/2NS 1L 1,000 ML IV PRN (02:27)
[2019-02-08 02:28] LABS: ARTERIAL BLOOD PCO2 79.2 mmHg (35-45)
[2019-02-08] MEDS ORDERED: HYDRALAZINE HCL INJ/PF 20 MG/1 ML SDV IV PRN (02:29)
[2019-02-08] MEDS ORDERED: ACETAMINOPHEN 325 MG TABLET PO PRN (02:29)
[2019-02-08] MEDS ORDERED: MORPHINE SULFATE 10 MG/ML INJ IV PRN ×4 (02:29→02:39)
[2019-02-08] MEDS ORDERED: NICOTINE 21 MG/24 HR PATCH.TD24 TD PRN (02:29)
[2019-02-08] MEDS ORDERED: ONDANSETRON HCL INJ/PF 4 MG/2 ML SDV IV PRN (02:31)
[2019-02-08] MEDS ORDERED: LEVALBUTEROL HCL NEB 0.63 MG/3 ML AMPUL NEB PRN (02:34)
[2019-02-08 02:38] LABS: URINE AMPHETAMINES SCREEN NEGATIVE; URINE BARBITURATES SCREEN NEGATIVE; URINE BENZODIAZEPINES SCREEN NEGATIVE; URINE COCAINE SCREEN NEGATIVE; URINE MARIJUANA (THC) SCREEN NEGATIVE; URINE METHADONE SCREEN NEGATIVE; URINE PHENCYCLIDINE SCREEN NEGATIVE
[2019-02-08] MEDS: DIAZEPAM 5 MG TABLET PO SCH ×4 (02:46→09:07)
[2019-02-08] MEDS: POTASSI CL 20 MEQ/50 ML RIDER 20 MEQ/50 ML RTUPB IV SCH ×2 (02:49→05:03)
[2019-02-08] MEDS ORDERED: IPRATROPIUM BROMIDE 0.02% NEB 0.5 MG/2.5 ML AMPUL NEB SCH (08:00)
[2019-02-08] MEDS ORDERED: BUDESONIDE NEB 0.5 MG/2 ML AMPUL NEB SCH (08:00)
[2019-02-08] MEDS ORDERED: LEVALBUTEROL HCL NEB 1.25 MG/3 ML AMPUL NEB SCH (08:00)
[2019-02-08] MEDS ORDERED: POTASSIUM CHLORIDE 10 MEQ CAPSULE.ER PO ONE (09:00)
[2019-02-08] MEDS ORDERED: MAGNESIUM OXIDE 400 MG TABLET PO ONE (09:00)
[2019-02-08 09:25] VITALS: BP 123/80
--- NOTE | 2019-02-08 09:41 | RADIOLOGY REPORT (SQ) ---
EXAM DESCRIPTION: CHEST SINGLE VIEW COMPLETED DATE/TIME: 02/08/2019 9:27 am REASON FOR STUDY: decreased SpO2 COMPARISON: None. NUMBER OF VIEWS: One view. TECHNIQUE: Single frontal radiographic view of the chest acquired. LIMITATIONS: None. FINDINGS: LUNGS AND PLEURA: There is minimal right basilar atelectasis. No consolidation, pleural e ffusions or pneumothorax. MEDIASTINUM AND HILAR STRUCTURES: No masses. Contour normal. HEART AND VASCULAR STRUCTURES: Heart normal in size. Normal vasculature. BONES: No acute findings. HARDWARE: None in the chest. OTHER: No other significant finding. IMPRESSION: Minimal right basilar atelectasis. TECHNICAL DOCUMENTATION: JOB ID: [id number] [employer]- All Rights Reserved Reading location - IP/workstation name: [email or web address]
[2019-02-08 09:46] LABS: ARTERIAL BLOOD BASE EXCESS 8.6 mmol/L; ARTERIAL BLOOD H2CO3 1.64 mmol/L (1.05-1.35); ARTERIAL BLOOD HCO3 34.7 mmol/L (20-24); ARTERIAL BLOOD O2 SATURATION 97.8 % (94-98); ARTERIAL BLOOD PCO2 54.4 mmHg (35-45); ARTERIAL BLOOD PH 7.42 (7.35-7.45); ARTERIAL BLOOD PO2 104.6 mmHg (80-100); ARTERIAL BLOOD TOTAL CO2 36.4 mmol/L (23-27)
[2019-02-08 09:49] LABS: ARTERIAL BLOOD FIO2 15L
[2019-02-08] MEDS ORDERED: OXYBUTYNIN CHLORIDE 15 MG PO SCH (10:00)
[2019-02-08] MEDS ORDERED: ASPIRIN 81 MG TABLET, CHEWABLE PO SCH (10:00)
[2019-02-08] MEDS ORDERED: (PENDING PHARMACY ID) (Pravastatin Sodium [Pravastatin Sodium] 20 MG) PO SCH (10:00)
[2019-02-08] MEDS ORDERED: TAMSULOSIN HCL 0.4 MG CAP.SR.24H PO SCH (10:00)
[2019-02-08] MEDS ORDERED: (PENDING PHARMACY ID) (Enalapril Maleate [Enalapril Maleate] 20 MG) PO SCH (10:00)
[2019-02-08] MEDS ORDERED: MVI, ADULT NO.1 WITH VIT K INJ 10 ML VIAL IV SCH (10:00)
[2019-02-08] MEDS ORDERED: (PENDING PHARMACY ID) (Diltiazem Hcl [Diltiazem 24hr Er] 180 MG) PO SCH (10:00)
[2019-02-08] MEDS ORDERED: DILTIAZEM HCL 240 MG CAPSULE.CR PO SCH (10:00)
[2019-02-08] MEDS ORDERED: PANTOPRAZOLE SODIUM 40 MG VIAL IV SCH (10:00)
== END 2019-02-08 09:43 | disposition short-term general hospital (02) ==
LOC: ER 11:16
DX: K92.2 Gastrointestinal hemorrhage, unspecified (principal); F10.231 Alcohol dependence with withdrawal delirium; N13.2 Hydronephrosis with renal and ureteral calculous obstruction; K92.1 Melena; K92.0 Hematemesis; R07.9 Chest pain, unspecified; R10.13 Epigastric pain; R14.0 Abdominal distension (gaseous); R14.2 Eructation; R06.2 Wheezing; R10.817 Generalized abdominal tenderness; M54.5 Low back pain; G89.4 Chronic pain syndrome; F17.210 Nicotine dependence, cigarettes, uncomplicated; I10 Essential (primary) hypertension; E11.9 Type 2 diabetes mellitus without complications; Z79.899 Other long term (current) drug therapy; Z79.82 Long term (current) use of aspirin; Z79.84 Long term (current) use of oral hypoglycemic drugs
CPT/HCPCS: 93005; 96376; 99285; 96375; 96365; 96366; 96367; 96368; 86900; 86901; 36415; 86850; 82962; 80307 ×2; 82803; 83690; 83735; 85025; 85027; 85610; 85730; 80048; 80053; 81001; 71045; 74177; 93010; J3360; A9270; J3490 ×2; J2270; J2060 ×2; J3475; J3480 ×3; C9113 ×2; J3411; J2405 ×2; J7030; J7050; S0164

== ENCOUNTER 2019-04-06 19:30 | Emergency (ER) | payer MEDICARE ==
[2019-04-06] MEDS ORDERED: ASPIRIN 81 MG TABLET, CHEWABLE PO ONE (19:54)
[2019-04-06] MEDS ORDERED: NORMAL SALINE 1000 ML 1,000 ML IV ONE (19:58)
--- NOTE | 2019-04-06 20:01 | ER Document Report ---
ED General - General Chief Complaint: Chest Pain Stated Complaint: CHEST PAIN Time Seen by Provider: 04/06/19 19:50 Primary Care Provider: JAYLEN POMPA MD [Primary Care Provider] - Follow up as needed Notes: Patient is a 63-year-old male with a past medical history of tobacco abuse, alcohol abuse, states that he was hospitalized in mid February for a large volume upper GI bleed stating "I almost bled to ", was transferred to [facility] for management of this large volume upper GI bleed hence states that he did require blood transfusion. Review of medical records from here at [facility] does reveal that the source was likely secondary to excessive use of NSAIDs as well as alcohol abuse. The patient relays a history of 3 days of chest pain radiating to the bilateral upper extremities as well as into the back. States the pain is a constant, throbbing, severe pain. He states that it is worsened by eating. He notes that it also makes him very nauseous to eat and often prompts him to vomit. He denies any known history of coronary artery disease. States the pain was so severe last night he could not sleep and as it progressively worsened today he decided to come to the hospital for further assessment. He denies associated shortness of breath but does note some diaphoresis and vomiting. TRAVEL OUTSIDE OF THE [place] IN LAST 30 DAYS: No - Related Data Allergies/Adverse Reactions: No Known Allergies Allergy (Verified 04/06/19 19:37) Past Medical History - General Information source: Patient - Social History Smoking Status: Current Every Day Smoker Frequency of alcohol use: Heavy Drug Abuse: None Lives with: Alone Family History: Reviewed & Not Pertinent, Other - The patient is unable to provide meaningful family history at this time. - Past Medical History Cardiac Medical History: Reports: Hx Hypercholesterolemia, Hx Hypertension Denies: Hx Heart Attack Pulmonary Medical History: Reports: Hx COPD Denies: Hx Asthma, Hx Bronchitis, Hx Pneumonia Neurological Medical History: Denies: Hx Cerebrovascular Accident, Hx Seizures Endocrine Medical History: Reports: Hx Diabetes Mellitus Type 2. Denies: Hx Diabetes Mellitus Type 1, Hx Hyperthyroidism, Hx Hypothyroidism Renal/ Medical History: Denies: Hx Peritoneal Dialysis GI Medical History: Denies: Hx Cirrhosis, Hx Hepatitis Musculoskeletal Medical History: Reports Hx Arthritis Skin Medical History: Denies Hx Eczema, Denies Hx Psoriasis Infectious Medical History: Denies: Hx Hepatitis Past Surgical History: Reports: Hx Abdominal Surgery - hernia repair, Other - Patient is unable to provide meaningful input at this time. - Immunizations Hx Diphtheria, Pertussis, Tetanus Vaccination: Yes Review of Systems - Review of Systems Notes: Constitutional: Negative for fever. HENT: Negative for sore throat. Eyes: Negative for visual changes. Cardiovascular: Positive for chest pain. Respiratory: Negative for shortness of breath. Gastrointestinal: Negative for abdominal pain, positive for nausea and vomiting Genitourinary: Negative for dysuria. Musculoskeletal: positive for pain to the bilateral upper extremities. Skin: Negative for rash. Neurological: Negative for headaches, weakness or numbness. 10 point ROS negative except as marked above and in HPI. Physical Exam - Vital signs Vitals: Resp 22 H 04/06/19 19:47 Interpretation: Normal Notes: PHYSICAL EXAMINATION: GENERAL: Ill in appearance, somewhat pale but in no acute distress HEAD: Atraumatic, normocephalic. EYES: Pupils equal round and reactive to light, extraocular movements intact, sclera anicteric, conjunctiva are normal. ENT: nares patent, oropharynx clear without exudates. Moderately dry mucous membranes. NECK: Normal range of motion, supple without lymphadenopathy LUNGS: Mild tachypnea, diffuse wheezes in all lung montez HEART: Regular tachycardia without murmurs ABDOMEN: Soft, nontender, normoactive bowel sounds. No guarding, no rebound. No masses appreciated. EXTREMITIES: Normal range of motion, no pitting or edema. No cyanosis. NEUROLOGICAL: No focal neurological deficits. Moves all extremities spontaneously and on command. PSYCH: Normal mood, normal affect. SKIN: Somewhat cool to touch, diffuse pallor Course - Re-evaluation Re-evalutation: 04/06/19 20:02 Patient presents with what appears to be an acute STEMI. EKG was brought to me from triage, I immediately called an acute STEMI based on elevations of greater than 1 mm in leads V3, V4, V5. Patient was immediately brought back to a trauma resuscitation room and a code STEMI was called. Immediately a comp getting factor was identified in the patient's history which is that he had a large volume upper GI bleed less than 6 weeks ago certainly concerning for proceeding with thrombolytic therapy. 04/06/19 20:12 I spoke with the credit and collection manager at [facility] who has accepted the patient. He has reviewed EKG agrees that this is a STEMI pattern. Agrees on avoiding TNKase, states that we can start heparin as long as the patient's hemoglobin is above the transfusion threshold. Labs are pending. The patient did become hypotensive after administration of nitroglycerin, 2 tabs sublingual over 10 minutes. Pressures did go as low as the upper 70s systolic. No further nitroglycerin will be administered. Patient was started on IV fluids, blood pressure responded well and is currently at 105 on 83. Patient is noted to have diffuse wheezing and is mildly hypoxic to 88%. He has been placed on supplemental nasal cannula and has been given a nebulizer treatment. Patient remains in critical condition, will continue to reassess at regular intervals. 04/06/19 20:25 Hemoglobin is well above transfusion threshold. Case discussed again with accepting physician Dr. Lucio and we will proceed now with heparin infusion. 04/06/19 20:55 Troponin is markedly elevated as is BMP. Air care has arrived and patient will be medevac. I have contacted [facility] and informed them of lab derangements 04/06/19 20:56 - Vital Signs Vital signs: Temp Pulse Resp BP Pulse Ox 97.8 F 20 116/93 H 95 04/06/19 20:22 04/06/19 20:43 04/06/19 20:43 04/06/19 20:43 - Laboratory Result Diagrams: 04/06/19 19:55 04/06/19 19:55 Laboratory results interpreted by me: 04/06/19 04/06/19 04/06/19 19:55 19:55 19:55 WBC 13.5 H RBC 4.32 L Hgb 10.9 L Hct 34.8 L MCH 25.2 L MCHC 31.3 L RDW 19.7 H Seg Neutrophils % 83.3 H Lymphocytes % 6.9 L Absolute Neutrophils 11.2 H Sodium 135.1 L Chloride 96 L Carbon Dioxide 31 H BUN 23 H Direct Bilirubin 0.5 H AST 87 H NT-Pro-B Natriuret Pep 43678 H - Diagnostic Test Radiology reviewed: Image reviewed, Reports reviewed Radiology results interpreted by me: 04/06/19 20:56 Chest x-ray: No acute infiltrate, unchanged from previous. - EKG Interpretation by Me Additional EKG results interpreted by me: 04/06/19 20:[address] elevation [place] with ST changes in V3, V4, V5. Sinus tachycardia, rate 122. Critical Care Note - Critical Care Note Total time excluding time spent on procedures (mins): 35 Comments: Critical care time spent obtaining history from patient or surrogate, discussions with consultants, development of treatment plan with patient or surrogate, evaluation of patient's response to treatment, examination of patient, ordering and performing treatments and interventions, ordering and revi ew of laboratory studies, re-evaluation of patient's condition, ordering and review of radiographic studies and review of old charts Discharge - Discharge Clinical Impression: Tobacco use STEMI (ST elevation myocardial infarction) Qualifiers: Involved coronary artery: unspecified coronary artery Qualified Code(s): I21.3 - ST elevation (STEMI) myocardial infarction of unspecified site Nausea and vomiting Qualifiers: Vomiting type: unspecified Vomiting Intractability: non-intractable Qualified Code(s): R11.2 - Nausea with vomiting, unspecified Condition: Critical Disposition: [facility] Referrals: JAYLEN POMPA MD [Primary Care Provider] - Follow up as needed
[2019-04-06] MEDS ORDERED: EPINEPHRINE INJ 1 MG/10 ML DISP.SYRIN ONE (20:05)
[2019-04-06] MEDS ORDERED: IPRATROPIUM/ALBUTEROL 0.5-2.5 MG/3 ML AMPUL NEB ONE (20:05)
[2019-04-06 20:12] LABS: ABSOLUTE LYMPHOCYTES (AUTO) 0.9 10^3/uL (0.5-4.7); ABSOLUTE MONOCYTES (AUTO) 1.3 10^3/uL (0.1-1.4); ABSOLUTE NEUT (AUTO) 11.2 10^3/uL (1.7-8.2); BASOPHILS % (AUTO) 0.2 % (0-2); EOSINOPHILS % (AUTO) 0.3 % (0-6); HEMATOCRIT 34.8 % (37.9-51.0); HEMOGLOBIN 10.9 g/dL (13.5-17.0); LYMPHOCYTES % (AUTO) 6.9 % (13-45); MEAN CORPUSCULAR HEMOGLOBIN 25.2 pg (27.0-33.4); MEAN CORPUSCULAR HGB CONC 31.3 g/dL (32.0-36.0); MEAN CORPUSCULAR VOLUME 81 fl (80-97); MONOCYTES % (AUTO) 9.3 % (3-13); PLATELET COUNT 278 10^3/uL (150-450); RED BLOOD COUNT 4.32 10^6/uL (4.35-5.55); RED CELL DISTRIBUTION WIDTH 19.7 % (11.5-14.0); SEGMENTED NEUTROPHILS % (AUTO) 83.3 % (42-78); TOTAL CELLS COUNTED % (AUTO) 100 %; WHITE BLOOD COUNT 13.5 10^3/uL (4.0-10.5)
[2019-04-06] MEDS ORDERED: HEPARIN SODIUM,PORCINE/D5W 25,000 UNIT/250 ML RTUINJ IV PRN (20:21)
[2019-04-06] MEDS ORDERED: HEPARIN SOD (PORCINE) 1,000 UNIT/ML 10 ML VIAL IV ONE (20:21)
[2019-04-06] MEDS ORDERED: HEPARIN SODIUM,PORCINE/D5W 25,000 UNIT/250 ML RTUINJ IV ONE (20:28)
[2019-04-06] MEDS ORDERED: HEPARIN SOD (PORCINE) 1,000 UNIT/ML 10 ML VIAL ONE (20:29)
--- NOTE | 2019-04-06 20:31 | RADIOLOGY REPORT (SQ) ---
EXAM DESCRIPTION: XR CHEST 1 VIEW COMPLETED DATE/TME: 04/06/2019 19:55 CLINICAL HISTORY: 63 years Male cp COMPARISON: 02/08/2019 FINDINGS: The cardiomediastinal silhouette appears unremarkable. No consolidating infiltrates or pleural effusions. No pneumothorax. Do fibular pad over the central chest. Overlying monitoring devices are present. IMPRESSION: No acute abnormality is identified.
[2019-04-06 20:34] LABS: ALANINE AMINOTRANSFERASE 35 U/L (21-72); ALBUMIN 3.6 g/dL (3.5-5.0); ALKALINE PHOSPHATASE 86 U/L (38-126); ANION GAP 8 (5-19); ASPARTATE AMINO TRANSFERASE 87 U/L (17-59); BILIRUBIN,DIRECT 0.5 mg/dL (0.0-0.4); BILIRUBIN,TOTAL 0.7 mg/dL (0.2-1.3); BLOOD UREA NITROGEN 23 mg/dL (7-20); CALCIUM 9.2 mg/dL (8.4-10.2); CARBON DIOXIDE 31 mmol/L (22-30); CHLORIDE 96 mmol/L (98-107); GLUCOSE 104 mg/dL (75-110); POTASSIUM 4.3 mmol/L (3.6-5.0); SODIUM 135.1 mmol/L (137-145); TOTAL PROTEIN 6.7 g/dL (6.3-8.2)
[2019-04-06 20:35] LABS: ALCOHOL < 10 mg/dL (NONE DETECTED)
[2019-04-06 20:38] LABS: INTERNATIONAL RATION (INR) 1.06; PROTHROMBIN TIME 13.8 SEC (11.4-15.4)
[2019-04-06 20:39] LABS: PARTIAL THROMBOPLASTIN TIME 34.1 SEC (23.5-35.8)
[2019-04-06 20:48] LABS: TROPONIN I 30.2 ng/mL
[2019-04-06 21:02] VITALS: BP 109/91
[2019-04-06] MEDS ORDERED: HEPARIN SOD (PORCINE) 1,000 UNIT/ML 10 ML VIAL IV PRN (23:22)
--- NOTE | 2019-04-06 23:49 | EKG REPORT ---
SEVERITY:- ABNORMAL ECG - SINUS TACHYCARDIA PROBABLE LEFT ATRIAL ABNORMALITY NONSPECIFIC INTRAVENTRICULAR CONDUCTION DELAY INFERIOR INFARCT, RECENT ANTERIOR INFARCT, POSSIBLY ACUTE LATERAL LEADS ARE ALSO INVOLVED : Confirmed by: Ayden Bingham 06-Apr-2019 23:49:05
== END 2019-04-06 20:58 | disposition short-term general hospital (02) ==
LOC: ER 19:30
DX: I21.3 ST elevation (STEMI) myocardial infarction of unspecified site (principal); R11.2 Nausea with vomiting, unspecified; R07.9 Chest pain, unspecified; F10.10 Alcohol abuse, uncomplicated; M79.601 Pain in right arm; M79.602 Pain in left arm; F17.200 Nicotine dependence, unspecified, uncomplicated; I10 Essential (primary) hypertension; J44.9 Chronic obstructive pulmonary disease, unspecified; E11.9 Type 2 diabetes mellitus without complications
CPT/HCPCS: 93005; 99291; 36415; 80307; 85025; 85610; 85730; 80053; 84484; 83880; 71045; 93010; J1644 ×2; A9270 ×2; J7030; J7620